=== PATIENT | female | born 1970 | race Caucasian/White ===

== ENCOUNTER 2016-09-05 13:13 | Emergency (ER) | payer OTHER ==
[~2016-09-05] VITALS: Ht 172.7 cm; Wt 73.2 kg
[2016-09-05 14:29] LABS: MCH 27.4 PG (29.0-34.0); MCV 85.4 FL (83-99); MEAN PLAT.VOLUME 8.7 uM^3 (9.5-12.4); PLATELET COUNT 360 K/uL (156-360); RBC DIS.WIDTH-CV 12.5 % (11.8-14.6); RBC DIS.WIDTH-SD 38.8 % (39-53); RED BLOOD COUNT 5.15 M/uL (3.80-5.20); WHITE BLOOD COUNT 3.5 K/uL (4.1-10.2)
[2016-09-05 14:37] LABS: CHLORIDE 105 mEq/L (99-109); POTASSIUM 4.3 mEq/L (3.7-5.4); SODIUM 137 mEq/L (136-147)
[2016-09-05 14:39] LABS: GLUCOSE 82 mg/dL (70-99)
[2016-09-05 14:40] LABS: ANION GAP 7 MEQ/L (2-14)
[2016-09-05 14:41] LABS: TOTAL BILIRUBIN 0.5 mg/dL (0.0-1.0)
[2016-09-05 14:43] LABS: ALKALINE PHOSPHATASE 66 IU/L (3-129)
[2016-09-05 14:44] LABS: UREA NITROGEN (BUN) 9 mg/dL (9-23)
[2016-09-05 14:46] LABS: GFR ESTIMATE (CALCULATED) 58 mL/min/; LIPASE 27 U/L (1.0-51.0)
[2016-09-05 14:52] LABS: QUANTITATIVE HCG < 4.0 MIU/ML
[2016-09-05 15:20] LABS: ADD MIUA? YES; BILIRUBIN NEGATIVE; BLOOD SMALL; COLOR YELLOW ((YELLOW)); GLUCOSE (STRIP) NEGATIVE; KETONES 20; LEUKOCYTES TRACE; NITRITE NEGATIVE; PROTEIN (STRIP) 30; UROBILINOGEN 0.2 MG/DL (0.2-1.0)
[2016-09-05 15:23] LABS: BACTERIA RARE /HPF; EPITHELIAL CELLS 1+ /HPF; MUCUS TRACE /LPF; RED BLOOD CELLS 0-5 /HPF (0-5); UCUL ADDED? NO; WHITE BLOOD CELLS 0-5 /HPF (0-5)
[2016-09-05] MEDS ORDERED: CARAFATE1 GM PO (16:30)
[2016-09-05] MEDS ORDERED: PEPCID20 MG PO (16:30)
[2016-09-05 17:04] VITALS: BP 132/78
== END 2016-09-05 17:05 | disposition home or self-care (01) ==
LOC: EME 13:13
DX: R10.13 Epigastric pain (principal)
CPT/HCPCS: 80053; 81003; 83690; 84702; 85027; 93005; 99281; 99283